=== PATIENT | female | born 1990 | race Caucasian/White ===

== ENCOUNTER 2017-07-02 19:56 | Emergency (ER) | payer BC ==
[2017-07-02] MEDS ORDERED: NS 0.9% 1000 ML* 1,000 ML IV ONE ×2 (20:30→22:29)
[2017-07-02] MEDS ORDERED: Metoclopramide IV* 5 MG/ML 2 ML VIAL IV SLOW PU ONE (20:31)
[2017-07-02] MEDS ORDERED: HYDROmorphone INJ* 2 MG/ML CARPUJECT SYRINGE IV SLOW PU ONE (20:31)
[2017-07-02] MEDS ORDERED: Clindamycin 900 MG IVPREMIX(* 900 MG/50 ML SDV IV ONE (20:32)
[2017-07-02] MEDS ORDERED: Tetan/Diph/Pertus SYR(Tdap)* 0.5 ML SYR(BOOSTRIX) use SYR IM ONE (20:32)
[2017-07-02] MEDS ORDERED: Lidocaine 2% EPI 1:200000 MPF* 20 ML VIAL ONE (21:05)
[2017-07-02] MEDS ORDERED: Ondansetron INJ* 2 MG/ML VIAL IV ONE (22:29)
[2017-07-02] MEDS ORDERED: Ondansetron TAB* 4 MG PO PRN (22:40)
--- NOTE | 2017-07-02 23:04 | ED ---
Basil Andrews Nilda, scribed for Maulik Dennis MD on 07/02/17 at 2039 . Bite Injury/Animal - HPI Summary HPI Summary: This patient is a 26 year old F presenting to [facility] accompanied by family with a chief complaint of multiple dog bites (punctured) to right top of buttocks and back of left leg since earlier this evening. Pt states her 4 family dogs that are normally well behaved began to fight each other and then attacked the pt as she was trying to calm them. The patient rates the pain 10/10 in severity. Symptoms aggravated by movement and alleviated by rest. Pt states dogs ' vaccines are UTD. Pt notes last tetanus was in 2009. - History of Current Complaint Chief Complaint: EDAnimalBite Stated Complaint: DOG ATTACK Time Seen by Provider: 07/02/17 20:24 Hx Obtained From: Patient Onset of Injury: Happened minutes ago, Still Present Type of Bite: Pet Has Animal Been Immunized?: Yes Severity Currently: Severe Pain Intensity: 10 Pain Scale Used: 0-10 Numeric Character: Puncture Aggravating Factor(s): Other - movement Alleviating Factor(s): Rest - Allergies/Home Medications Allergies/Adverse Reactions: Allergies Allergy/AdvReac Type Severity Reaction Status Date / Time No Known Allergies Allergy Verified 07/02/17 20:03 PMH/Surg Hx/FS Hx/Imm Hx Sensory History: Denies: Hx Legally Blind EENT History: Denies: Hx Deafness Infectious Disease History: No Infectious Disease History: Denies: Traveled Outside the [place] in Last 30 Days - Family History Known Family History: Positive: Unknown - reviewed and noncontributory Review of Systems Negative: Shortness Of Breath Positive: Other - multiple dog bites (punctured) to right top of buttocks and back of LLE All Other Systems Reviewed And Are Negative: Yes Physical Exam - Summary Physical Exam Summary: VITAL SIGNS: Reviewed. GENERAL: Patient is a well-developed and nourished female who is lying comfortable in the stretcher. Patient is not in any acute respiratory distress. HEAD AND FACE: No signs of trauma. No ecchymosis, hematomas or skull depressions. No sinus tenderness. EYES: PERRLA, EOMI x 2, No injected conjunctiva, no nystagmus. EARS: Hearing grossly intact. Ear canals and tympanic membranes are within normal limits. MOUTH: Oropharynx within normal limits. NECK: Supple, trachea is midline, no adenopathy, no JVD, no carotid bruit, no c- spine tenderness, neck with full ROM. CHEST: Symmetric, no tenderness at palpation LUNGS: Clear to auscultation bilaterally. No wheezing or crackles. CVS: Regular rate and rhythm, S1 and S2 present, no murmurs or gallops appreciated. ABDOMEN: Soft, non-tender. No signs of distention. No rebound no guarding, and no masses palpated. Bowel sounds are normal. EXTREMITIES: FROM in all major joints, no edema, no cyanosis or clubbing. NEURO: Alert and oriented x 3. No acute neurological deficits. Speech is normal and follows commands. SKIN: Dry and warm. Multiple dog bites over lower extremities and right buttocks. Triage Information Reviewed: Yes Vital Signs On Initial Exam: Initial Vitals Temp Pulse Resp BP Pulse Ox 99.2 F 104 20 158/129 100 07/02/17 20:00 07/02/17 20:00 07/02/17 20:00 07/02/17 20:00 07/02/17 20:00 Vital Signs Reviewed: Yes Procedures - Laceration/Wound Repair Muliple lacerations Location: lower extremity - left, Other - right buttock Anesthesia: 2.0%, Lido, Epi Length, Depth and Shape: Multiple laceration lengths varying from 1 in to 2.5 in. From superficial to subcutaneous. Total length of lacerations 10 inches. Laceration/Wound Explored: clean, Other - irrigated very well with saline Closure: Savana #__ - approximately 25, good alignment and good hemostasis Layer Closure?: No Sterile Dressing Applied?: Yes - Bacitracin Diagnostics - Vital Signs Vital Signs Temp Pulse Resp BP Pulse Ox 07/02/17 20:00 99.2 F 104 20 158/129 100 - Laboratory Lab Statement: Any lab studies that have been ordered have been reviewed, and results considered in the medical decision making process. Bite Injury Course/Dx - Course Assessment/Plan: Pt is a 26 y/o who was attacked by 4 dogs that the family own. Pt had multiple lacerations over lower extremity and right buttock. Pt states dog vaccines are UTD. Pt's lacerations irrigated well and stapled. Pain meds, abx, and tetanus shot given in ED. Pt was D/C with abx and pain meds, given wound care instructions, and follow up with PCP. Pt was advised to return to ED if symptoms worsen. Dx. Animal bite and multiple lacerations. - Diagnoses Provider Diagnosis: Animal bite of buttock, Animal bite of left lower leg, Multiple lacerations Discharge - Discharge Plan Condition: Stable Disposition: HOME Prescriptions: Clindamycin Cap(NF) [Clindamycin Cap 300 mg Cap(NF)] 300 mg PO Q6H #30 cap Ondansetron [Zofran Odt] 8 mg PO Q8HR PRN #20 tab PRN Reason: Nausea/Vomiting oxyCODONE/Acetamin 5/325 MG* [Percocet 5/325 TAB*] 1 tab PO Q6H PRN #14 tab MDD 4 PRN Reason: Pain Patient Education Materials: Animal Bite (ED), Laceration (ED), Acute Wound Care (ED), Staple Care (ED) Referrals: [facility]YSICIAN REFERRAL [Outside] - 2 Days Non Staff,Doctor [Primary Care Provider] - Additional Instructions: RETURN TO THE EMERGENCY DEPARTMENT FOR CHANGING OR WORSENING SYMPTOMS. The documentation as recorded by the Basil spears Nilda accurately reflects the service I personally performed and the decisions made by , Maulik Dennis MD.
[2017-07-03 00:10] VITALS: BP 143/92
== END 2017-07-03 00:04 | disposition home or self-care (01) ==
LOC: ED 19:56
DX: S31.811A Laceration without foreign body of right buttock, initial encounter (principal); S81.812A Laceration without foreign body, left lower leg, initial encounter; W54.0XXA Bitten by dog, initial encounter; Y93.K9 Activity, other involving animal care; Y92.9 Unspecified place or not applicable; Z23 Encounter for immunization
CPT/HCPCS: 12006; 90471; 90715; 96361; 96365; 96375; 99283; J1170; J2405; J2765